=== PATIENT | female | born 1995 | race Caucasian/White ===

== ENCOUNTER 2016-12-27 18:49 | Inpatient (IN) | payer OTHER ==
[2016-12-27] MEDS ORDERED: RINGER'S SOLUTION,LACTATED 1,000 ML IV PRN (19:17)
[2016-12-27] MEDS ORDERED: RINGER'S SOLUTION,LACTATED 1,000 ML IV ONE (19:17)
[2016-12-27] MEDS ORDERED: OXYTOCIN/DEXTROSE 5%-WATER 30 UNITS/500 ML BAG IV ONE (19:17)
[2016-12-27] MEDS ORDERED: BUPIVACAINE HCL/0.9 % NACL/PF 250 ML EP PRN (19:17)
[2016-12-27] MEDS ORDERED: ONDANSETRON HCL/PF 2 MG/ML VIAL IV PRN ×2 (19:17)
[2016-12-27] MEDS ORDERED: NALOXONE HCL 1 MG/1 ML SYRG IV PRN (19:17)
[2016-12-27] MEDS ORDERED: LIDOCAINE HCL 50 ML VIAL PERI PRN (19:17)
--- OUTSIDE RECORDS SUMMARY | 2016-12-27 19:18 | XMS REPORT | Summary of Care ---
:1995 Author Organization [facility] Care Team Providers Name Role Phone Physician, Primary Care Primary Care Physician Unavailable Encounter Date(s): 09/30/16 - 09/30/[address] [id number] Discharge Disposition: Discharged to Home or Self Care Attending Physician: Ros Sierra CNM Admitting Physician: Ros Sierra CNM Vital Signs No data available for this section Problem List Condition Effective Dates Status Health Status Informant Maternal tobacco use(Confirmed) Active (Confirmed) 03/23/16 Active Allergies, Adverse Reactions, Alerts No Known Medication Allergies Medications azithromycin 500 mg oral tablet 2 tab(s), Oral, ONETIME, # 2 tab(s), 1 Refill(s), Start Date: 05/28/16 7:44:00 ZONE SUPERVISOR FIREARMS, Pharmacy: [facility] [id number] Start Date: 05/28/16 Stop Date: 06/24/16 Status: CompletedDebrox 6.5% otic solution 5 drop(s), Otic, BID, X 2 days, # 15 mL, 0 Refill(s), Start Date: 08/22/15 19:55 :00 CDT Start Date: 08/22/15 Stop Date: 08/24/15 Status: CompletedFlintstones Multivitamins 2 tab(s), Chewed, Daily, 0 Refill(s), Start Date: 05/27/16 13:22:00 ZONE SUPERVISOR FIREARMS Start Date: 05/27/16 Status: OrderedFlonase 50 mcg/inh nasal spray 2 spray(s), Nasal, BID, X 14 days, # 16 gm, 0 Refill(s), Start Date: 08/22/15 19 :54:00 CDT Start Date: 08/22/15 Stop Date: 09/05/15 Status: CompletedmetroNIDAZOLE 500 mg oral tablet 1 tab(s), Oral, q12hr interval, # 14 tab(s), 0 Refill(s), Start Date: 09/30/16 9 :46:00 CDT, Pharmacy: [facility] Start Date: 09/30/16 Stop Date: 10/07/16 Status: Orderedpromethazine 25 mg oral tablet 1 tab(s), Oral, q6hr, PRN nausea, # 30 tab(s), 0 Refill(s), Start Date: 10:02:00 ZONE SUPERVISOR FIREARMS, Pharmacy: [facility] [id number] Start Date: 05/20/16 Stop Date: 06/24/16 Status: Completedpromethazine 25 mg oral tablet 1 tab(s), Oral, q6hr, PRN nausea, # 30 tab(s), 0 Refill(s), Start Date: 10:01:00 ZONE SUPERVISOR FIREARMS Start Date: 05/20/16 Stop Date: 05/20/16 Status: DiscontinuedValium 2 mg oral tablet 1 tab(s), Oral, TID, PRN muscle pain, X 5 days, # 15 tab(s), 0 Refill(s), Start Date: 06/24/15 22:12:00 ZONE SUPERVISOR FIREARMS Start Date: 06/24/15 Stop Date: 06/29/15 Status: Completed Results Patient Viewable Results Most recent to oldest [Reference Range]: 1 Fibronectin [Negative] Positive1 *ABN* (09/30/16 9:38 AM) UA Color Yellow *NA* (09/30/16 9:19 AM) Urine Clarity Cloudy *NA* (09/30/16 9:19 AM) Specific [place] [1.000-1.060] 1.016 (09/30/16 9:19 AM) Urine pH [5-8] 7 (09/30/16 9:19 AM) Ketones Negative (09/30/16 9:19 AM) Bilirubin [Negative] Negative (09/30/16 9:19 AM) Urine Protein [Negative] Negative (09/30/16 9:19 AM) Glucose [Negative] Negative (09/30/16 9:19 AM) Urine HGB [Negative] Negative (09/30/16 9:19 AM) Urobilinogen <2.0 *NA* (09/30/16 9:19 AM) Nitrite [Negative] Negative (09/30/16 9:19 AM) Leuk Esterase [Negative] Negative (09/30/16 9:19 AM) UA Ascorbic Acid [Negative] Negative (09/30/16 9:19 AM) Urine WBC [0-5] 0-5 (09/30/16 9:19 AM) Urine RBC [0-2] None Seen (09/30/16 9:19 AM) Squamous Epi [0-5] 0-5 (09/30/16 9:19 AM) Mucus 1+ (09/30/16 9:19 AM) UA Amorphous Sediment 3+ *ABN* (09/30/16 9:19 AM) 1Result Comment: Verified Results called to and read back by marely at 2016 10:45:22 AM CDT by tp Immunizations Vaccine Date Refusal Reason influenza virus vaccine, inactivated 05/27/16 Procedures No data available for this section Social History No data available for this section Assessment and Plan No data available for this section
--- OUTSIDE RECORDS SUMMARY | 2016-12-27 19:18 | XMS REPORT | Summary of Care ---
:1995 Author Organization [facility] Address [address] [place] [address] Care Team Providers Name Role Phone Physician, Primary Care Primary Care Physician Unavailable Encounter Date(s): 06/24/16 - 06/24/16 [facility], [address] [place], [place] [address] Discharge Diagnosis: Maternal tobacco use in first trimester Discharge Diagnosis: Discharge Diagnosis: related nausea, antepartum Discharge Disposition: 01 Discharged to Home or Self Care Attending Physician: Ros Sierra CNM Referring Physician: Ros Sierra CNM Vital Signs Most recent to oldest [Reference Range]: 1 Peripheral Pulse Rate [60-100 bpm] 66 bpm (06/24/16 2:18 PM) Blood Pressure [90-130/60-90 mmHg] 107/66mmHg (06/24/16 2:18 PM) Weight Dosing 69.10 kg1 (06/24/16 2:19 PM) Weight Measured 69.1 kg (06/24/16 2:18 PM) 1Result Comment: This result was because the dosing weight was either not entered or it is>30 days old. This result is based off: Weight Measured June 24, 2016 14:18:00 CERTIFIED RESPIRATORY THERAPIST by Yolanda Corona MA Problem List Condition Effective Dates Status Health Status Informant Adolescent (Confirmed) Active Maternal tobacco use(Confirmed) Active (Confirmed) 03/23/16 Active Allergies, Adverse Reactions, Alerts No Known Medication Allergies Medications azithromycin 500 mg oral tablet 2 tab(s), Oral, ONETIME, # 2 tab(s), 1 Refill(s), Start Date: 05/28/16 7:44:00 CERTIFIED RESPIRATORY THERAPIST, Pharmacy: [facility] [id number] Start Date: 05/28/16 Stop Date: 06/24/16 Status: CompletedDebrox 6.5% otic solution 5 drop(s), Otic, BID, X 2 days, # 15 mL, 0 Refill(s), Start Date: 08/22/15 19:55 :00 CDT Start Date: 08/22/15 Stop Date: 08/24/15 Status: CompletedFlintstones Multivitamins tab(s), Chewed, Daily, 0 Refill(s), Start Date: 05/27/16 13:22:00 CERTIFIED RESPIRATORY THERAPIST Start Date: 05/27/16 Status: OrderedFlonase 50 mcg/inh nasal spray 2 spray(s), Nasal, BID, X 14 days, # 16 gm, 0 Refill(s), Start Date: 08/22/15 19 :54:00 CDT Start Date: 08/22/15 Stop Date: 09/05/15 Status: Completedpromethazine 25 mg oral tablet 1 tab(s), Oral, q6hr, PRN nausea, # 30 tab(s), 0 Refill(s), Start Date: 10:02:00 CERTIFIED RESPIRATORY THERAPIST, Pharmacy: [facility] [id number] Start Date: 05/20/16 Stop Date: 06/24/16 Status: Completedpromethazine 25 mg oral tablet 1 tab(s), Oral, q6hr, PRN nausea, # 30 tab(s), 0 Refill(s), Start Date: 10:01:00 CERTIFIED RESPIRATORY THERAPIST Start Date: 05/20/16 Stop Date: 05/20/16 Status: DiscontinuedValium 2 mg oral tablet 1 tab(s), Oral, TID, PRN muscle pain, X 5 days, # 15 tab(s), 0 Refill(s), Start Date: 06/24/15 22:12:00 CERTIFIED RESPIRATORY THERAPIST Start Date: 06/24/15 Stop Date: 06/29/15 Status: Completed Results No data available for this section Immunizations Given and Recorded Vaccine Date Status Refusal Reason influenza virus vaccine, inactivated 05/27/16 Given Procedures No data available for this section Social History No data available for this section Assessment and Plan No data available for this section
--- OUTSIDE RECORDS SUMMARY | 2016-12-27 19:18 | XMS REPORT | Summary of Care ---
:1995 Author Organization [facility] Address [address] [place] [address] Care Team Providers Name Role Phone Physician, Primary Care Primary Care Physician Unavailable Encounter Date(s): 12/02/16 - 12/02/16 [facility], [address] [place], [place] [address] Discharge Disposition: 01 Discharged to Home or Self Care Attending Physician: Ros Sierra CNM Referring Physician: Ros Sierra CNM Vital Signs Most recent to oldest [Reference Range]: 1 Peripheral Pulse Rate [60-100 bpm] 85 bpm (12/02/16 9:54 AM) Blood Pressure [90-130/60-90 mmHg] 125/81mmHg (12/02/16 9:54 AM) Most recent to oldest [Reference Range]: 1 Weight Dosing 86.90 kg1 (12/02/16 9:55 AM) Weight Measured 86.9 kg (12/02/16 9:54 AM) 1Result Comment: This result was because the dosing weight was either not entered or it is>30 days old. This result is based off: Weight Measured December 02, 2016 09:54:00 CDT by Yolanda Corona MA Problem List Condition Effective Dates Status Health Status Informant Maternal tobacco use(Confirmed) Active (Confirmed) 03/23/16 Active Allergies, Adverse Reactions, Alerts No Known Medication Allergies Medications azithromycin 500 mg oral tablet 2 tab(s), Oral, ONETIME, # 2 tab(s), 1 Refill(s), Start Date: 05/28/16 7:44:00 ROADING ENGINEER, Pharmacy: [facility] [id number] Start Date: 05/28/16 Stop Date: 06/24/16 Status: CompletedDebrox 6.5% otic solution 5 drop(s), Otic, BID, X 2 days, # 15 mL, 0 Refill(s), Start Date: 08/22/15 19:55 :00 CDT Start Date: 08/22/15 Stop Date: 08/24/15 Status: CompletedFlintstones Multivitamins 2 tab(s), Chewed, Daily, 0 Refill(s), Start Date: 05/27/16 13:22:00 ROADING ENGINEER Start Date: 05/27/16 Status: OrderedFlonase 50 mcg/inh nasal spray 2 spray(s), Nasal, BID, X 14 days, # 16 gm, 0 Refill(s), Start Date: 08/22/15 19 :54:00 CDT Start Date: 08/22/15 Stop Date: 09/05/15 Status: CompletedmetroNIDAZOLE 500 mg oral tablet 1 tab(s), Oral, q12hr interval, # 14 tab(s), 0 Refill(s), Start Date: 09/30/16 9 :46:00 CDT, Pharmacy: [facility] Start Date: 09/30/16 Stop Date: 10/07/16 Status: Completedpromethazine 25 mg oral tablet 1 tab(s), Oral, q6hr, PRN nausea, # 30 tab(s), 0 Refill(s), Start Date: 10:02:00 ROADING ENGINEER, Pharmacy: [facility] [id number] Start Date: 05/20/16 Stop Date: 06/24/16 Status: Completedpromethazine 25 mg oral tablet 1 tab(s), Oral, q6hr, PRN nausea, # 30 tab(s), 0 Refill(s), Start Date: 10:01:00 ROADING ENGINEER Start Date: 05/20/16 Stop Date: 05/20/16 Status: DiscontinuedValium 2 mg oral tablet 1 tab(s), Oral, TID, PRN muscle pain, X 5 days, # 15 tab(s), 0 Refill(s), Start Date: 06/24/15 22:12:00 ROADING ENGINEER Start Date: 06/24/15 Stop Date: 06/29/15 Status: Completed Results No data available for this section Immunizations Vaccine Date Refusal Reason tetanus/diphth/pertuss (Tdap) adult/adol 10/07/16 influenza virus vaccine, inactivated 05/27/16 Procedures No data available for this section Social History No data available for this section Assessment and Plan No data available for this section
--- OUTSIDE RECORDS SUMMARY | 2016-12-27 19:18 | XMS REPORT | Summary of Care ---
:1995 Author Organization [facility] Address [address] [place] [address] Care Team Providers Name Role Phone Physician, Primary Care Primary Care Physician Unavailable Encounter [facility] [id number] Date(s): 10/29/16 - 10/29/16 [facility], [address] [place] [address] [facility] Discharge Disposition: 01 Discharged to Home or Self Care Attending Physician: Ros Sierra CNM Referring Physician: Ros Sierra CNM Vital Signs Most recent to oldest [Reference Range]: 1 Peripheral Pulse Rate [60-100 bpm] 86 bpm (10/29/16 2:07 PM) Blood Pressure [90-130/60-90 mmHg] 110/64mmHg (10/29/16 2:07 PM) Most recent to oldest [Reference Range]: 1 Weight Dosing 81.60 kg1 (10/29/16 2:09 PM) Weight Measured 81.6 kg (10/29/16 2:07 PM) 1Result Comment: This result was because the dosing weight was either not entered or it is>30 days old. This result is based off: Weight Measured October 29, 2016 14:07:00 CDT by Yolanda Corona MA Problem List Condition Effective Dates Status Health Status Informant Maternal tobacco use(Confirmed) Active (Confirmed) 03/23/16 Active Allergies, Adverse Reactions, Alerts No Known Medication Allergies Medications azithromycin 500 mg oral tablet 2 tab(s), Oral, ONETIME, # 2 tab(s), 1 Refill(s), Start Date: 05/28/16 7:44:00 HEAVY DUTY CUSTODIAN, Pharmacy: [facility] [id number] Start Date: 05/28/16 Stop Date: 06/24/16 Status: CompletedDebrox 6.5% otic solution 5 drop(s), Otic, BID, X 2 days, # 15 mL, 0 Refill(s), Start Date: 08/22/15 19:55 :00 CDT Start Date: 08/22/15 Stop Date: 08/24/15 Status: CompletedFlintstones Multivitamins 2 tab(s), Chewed, Daily, 0 Refill(s), Start Date: 05/27/16 13:22:00 HEAVY DUTY CUSTODIAN Start Date: 05/27/16 Status: OrderedFlonase 50 mcg/inh nasal spray 2 spray(s), Nasal, BID, X 14 days, # 16 gm, 0 Refill(s), Start Date: 08/22/15 19 :54:00 CDT Start Date: 08/22/15 Stop Date: 09/05/15 Status: CompletedmetroNIDAZOLE 500 mg oral tablet 1 tab(s), Oral, q12hr interval, # 14 tab(s), 0 Refill(s), Start Date: 09/30/16 9 :46:00 CDT, Pharmacy: [facility] Start Date: 09/30/16 Stop Date: 10/07/16 Status: Completedpromethazine 25 mg oral tablet 1 tab(s), Oral, q6hr, PRN nausea, # 30 tab(s), 0 Refill(s), Start Date: 10:02:00 HEAVY DUTY CUSTODIAN, Pharmacy: [facility] [id number] Start Date: 05/20/16 Stop Date: 06/24/16 Status: Completedpromethazine 25 mg oral tablet 1 tab(s), Oral, q6hr, PRN nausea, # 30 tab(s), 0 Refill(s), Start Date: 10:01:00 HEAVY DUTY CUSTODIAN Start Date: 05/20/16 Stop Date: 05/20/16 Status: DiscontinuedValium 2 mg oral tablet 1 tab(s), Oral, TID, PRN muscle pain, X 5 days, # 15 tab(s), 0 Refill(s), Start Date: 06/24/15 22:12:00 HEAVY DUTY CUSTODIAN Start Date: 06/24/15 Stop Date: 06/29/15 Status: Completed Results No data available for this section Immunizations Vaccine Date Refusal Reason tetanus/diphth/pertuss (Tdap) adult/adol 10/07/16 influenza virus vaccine, inactivated 05/27/16 Procedures No data available for this section Social History No data available for this section Assessment and Plan No data available for this section
--- OUTSIDE RECORDS SUMMARY | 2016-12-27 19:20 | XMS REPORT | Summary of Care ---
:1995 Author Organization [facility] Care Team Providers Name Role Phone Physician, Primary Care Primary Care Physician Unavailable Encounter Date(s): 12/02/16 - 12/02/[address] [id number] Discharge Disposition: Discharged to Home or Self [...] tab(s), 1 Refill(s), Start Date: 05/28/16 7:44:00 SOFTBALL CORE MOLDER, Pharmacy: [facility] [id number] Start Date: 05/28/16 Stop Date: 06/24/16 Status: CompletedDebrox 6.5% otic solution 5 drop(s), Otic, BID, X 2 days, # 15 mL, 0 Refill(s), Start Date: 08/22/15 19:55 :00 CDT Start Date: 08/22/15 Stop Date: 08/24/15 Status: CompletedFlintstones Multivitamins 2 tab(s), Chewed, Daily, 0 Refill(s), Start Date: 05/27/16 13:22:00 SOFTBALL CORE MOLDER Start Date: 05/27/16 Status: OrderedFlonase 50 mcg/inh nasal spray 2 spray(s), Nasal, BID, X 14 days, # 16 gm, 0 Refill(s), Start Date: 08/22/15 19 :54:00 CDT Start Date: 08/22/15 Stop Date: 09/05/15 Status: CompletedmetroNIDAZOLE 500 mg oral tablet 1 tab(s), Oral, q12hr interval, # 14 tab(s), 0 Refill(s), Start Date: 09/30/16 9 :46:00 CDT, Pharmacy: [facility] Start Date: 09/30/16 Stop Date: 10/07/16 Status: Completedpromethazine 25 mg oral tablet 1 tab(s), Oral, q6hr, PRN nausea, # 30 tab(s), 0 Refill(s), Start Date: 10:02:00 SOFTBALL CORE MOLDER, Pharmacy: [facility] [id number] Start Date: 05/20/16 Stop Date: 06/24/16 Status: Completedpromethazine 25 mg oral tablet 1 tab(s), Oral, q6hr, PRN nausea, # 30 tab(s), 0 Refill(s), Start Date: 10:01:00 SOFTBALL CORE MOLDER Start Date: 05/20/16 Stop Date: 05/20/16 Status: DiscontinuedValium 2 mg oral tablet 1 tab(s), Oral, TID, PRN muscle pain, X 5 days, # 15 tab(s), 0 Refill(s), Start Date: 06/24/15 22:12:00 SOFTBALL CORE MOLDER Start Date: 06/24/15 Stop Date: 06/29/15 Status: Completed Results Patient Viewable Results Most recent to oldest [Reference Range]: 1 WBC [4.8-10.8 thou/mm3] 10.4 thou/mm3 (12/02/16 10:15 AM) RBC [4.20-5.40 Mil/mm3] 3.91 Mil/mm3 *LOW* (12/02/16 10:15 AM) Hgb [12.0-16.0 g/dL] 11.7 g/dL *LOW* (12/02/16 10:15 AM) Hct [37.0-47.0 %] 34.7 % *LOW* (12/02/16 10:15 AM) MCV [80.0-94.0 fL] 88.7 fL (12/02/16 10:15 AM) MCH [25.0-38.0 pg/cell] 29.9 pg/cell (12/02/16 10:15 AM) MCHC [31.0-37.0 g/dL] 33.7 g/dL (12/02/16 10:15 AM) RDW [1.0-48.0 fL] 40.5 fL (12/02/16 10:15 AM) Platelet [130-400 thou/mm3] 303 thou/mm3 (12/02/16 10:15 AM) Neutrophils % Auto [50.0-75.0 %] 63.3 % (12/02/16 10:15 AM) Immature Granulocyte Auto [0.1-2.0 %] 0.6 % (12/02/16 10:15 AM) Lymphocytes % Auto [15.0-41.0 %] 26.1 % (12/02/16 10:15 AM) Monocytes % Auto [2.0-10.0 %] 8.5 % (12/02/16 10:15 AM) Eosinophils % Auto [0.0-6.0 %] 1.4 % (12/02/16 10:15 AM) Basophil % Auto [0.0-1.0 %] 0.1 % (12/02/16 10:15 AM) Neutrophils Absolute [1.5-5.9 thou/mm3] 6.6 thou/mm3 *HI* (12/02/16 10:15 AM) Immature Gran Absolute [0.01-0.03 thou/mm3] 0.06 thou/mm3 *HI* (12/02/16 10:15 AM) Lymphocytes Absolute [1.5-4.0 thou/mm3] 2.7 thou/mm3 (12/02/16 10:15 AM) Monocytes Absolute [0.0-0.9 thou/mm3] 0.9 thou/mm3 (12/02/16 10:15 AM) Eosinophil Absolute [0.0-0.7 thou/mm3] 0.1 thou/mm3 (12/02/16 10:15 AM) Basophil Absolute [0.0-0.2 thou/mm3] 0.0 thou/mm3 (12/02/16 10:15 AM) Hep B Surf Ag [Non-Reactive] Non-Reactive (12/02/16 10:15 AM) HIV Ag/Ab Combo [Non-Reactive] Non-Reactive (12/02/16 10:15 AM) Rubella IgG [Immune] Testing was performed by the [employer] Rubella IgG assay. ([facility]) (12/02/16 10:15 AM) ABO/Rh A POS *Unknown* (12/02/16 10:15 AM) Antibody Screen Negative ABSC (12/02/16 10:15 AM) Immunizations Vaccine Date Refusal Reason tetanus/diphth/pertuss (Tdap) adult/adol 10/07/16 influenza virus vaccine, inactivated 05/27/16 Procedures No data available for this section Social History No data available for this section Assessment and Plan No data available for this section
--- OUTSIDE RECORDS SUMMARY | 2016-12-27 19:20 | XMS REPORT | Summary of Care ---
:1995 Author Organization [facility] Address [address] [place] [address] Care Team Providers Name Role Phone Physician, Primary Care Primary Care Physician Unavailable Encounter Date(s): 07/22/16 - 07/22/16 [facility], [address] [place] [address] [place] Discharge Disposition: 01 Discharged to Home or Self Care Attending Physician: Ros Sierra CNM Referring Physician: Ros Sierra CNM Vital Signs No data available for this section Problem List Condition Effective Dates Status Health Status Informant Adolescent (Confirmed) Active Maternal tobacco use(Confirmed) Active (Confirmed) 03/23/16 Active Allergies, Adverse Reactions, Alerts No Known Medication Allergies Medications azithromycin 500 mg oral tablet 2 tab(s), Oral, ONETIME, # 2 tab(s), 1 Refill(s), Start Date: 05/28/16 7:44:00 GREEN INSPECTOR, Pharmacy: [facility] [id number] Start Date: 05/28/16 Stop Date: 06/24/16 Status: CompletedDebrox 6.5% otic solution 5 drop(s), Otic, BID, X 2 days, # 15 mL, 0 Refill(s), Start Date: 08/22/15 19:55 :00 CDT Start Date: 08/22/15 Stop Date: 08/24/15 Status: CompletedFlintstones Multivitamins tab(s), Chewed, Daily, 0 Refill(s), Start Date: 05/27/16 13:22:00 GREEN INSPECTOR Start Date: 05/27/16 Status: OrderedFlonase 50 mcg/inh nasal spray 2 spray(s), Nasal, BID, X 14 days, # 16 gm, 0 Refill(s), Start Date: 08/22/15 19 :54:00 CDT Start Date: 08/22/15 Stop Date: 09/05/15 Status: Completedpromethazine 25 mg oral tablet 1 tab(s), Oral, q6hr, PRN nausea, # 30 tab(s), 0 Refill(s), Start Date: 10:02:00 GREEN INSPECTOR, Pharmacy: [facility] [id number] Start Date: 05/20/16 Stop Date: 06/24/16 Status: Completedpromethazine 25 mg oral tablet 1 tab(s), Oral, q6hr, PRN nausea, # 30 tab(s), 0 Refill(s), Start Date: 10:01:00 GREEN INSPECTOR Start Date: 05/20/16 Stop Date: 05/20/16 Status: DiscontinuedValium 2 mg oral tablet 1 tab(s), Oral, TID, PRN muscle pain, X 5 days, # 15 tab(s), 0 Refill(s), Start Date: 06/24/15 22:12:00 GREEN INSPECTOR Start Date: 06/24/15 Stop Date: 06/29/15 Status: Completed Results No data available for this section Immunizations Vaccine Date Refusal Reason influenza virus vaccine, inactivated 05/27/16 Procedures No data available for this section Social History No data available for this section Assessment and Plan No data available for this section
--- OUTSIDE RECORDS SUMMARY | 2016-12-27 19:20 | XMS REPORT | Summary of Care ---
:1995 Author Organization [facility] Care Team Providers Name Role Phone Physician, Primary Care Primary Care Physician Unavailable Encounter Date(s): 11/12/16 - 11/12/[address] [address] Discharge Disposition: Discharged to [...] tab(s), 1 Refill(s), Start Date: 05/28/16 7:44:00 NONPROFIT FUNDRAISER, Pharmacy: [facility] [id number] Start Date: 05/28/16 Stop Date: 06/24/16 Status: CompletedDebrox 6.5% otic solution 5 drop(s), Otic, BID, X 2 days, # 15 mL, 0 Refill(s), Start Date: 08/22/15 19:55 :00 CDT Start Date: 08/22/15 Stop Date: 08/24/15 Status: CompletedFlintstones Multivitamins 2 tab(s), Chewed, Daily, 0 Refill(s), Start Date: 05/27/16 13:22:00 NONPROFIT FUNDRAISER Start Date: 05/27/16 Status: OrderedFlonase 50 mcg/inh nasal spray 2 spray(s), Nasal, BID, X 14 days, # 16 gm, 0 Refill(s), Start Date: 08/22/15 19 :54:00 CDT Start Date: 08/22/15 Stop Date: 09/05/15 Status: CompletedmetroNIDAZOLE 500 mg oral tablet 1 tab(s), Oral, q12hr interval, # 14 tab(s), 0 Refill(s), Start Date: 09/30/16 9 :46:00 CDT, Pharmacy: [facility] Start Date: 09/30/16 Stop Date: 10/07/16 Status: Completedpromethazine 25 mg oral tablet 1 tab(s), Oral, q6hr, PRN nausea, # 30 tab(s), 0 Refill(s), Start Date: 10:02:00 NONPROFIT FUNDRAISER, Pharmacy: [facility] [id number] Start Date: 05/20/16 Stop Date: 06/24/16 Status: Completedpromethazine 25 mg oral tablet 1 tab(s), Oral, q6hr, PRN nausea, # 30 tab(s), 0 Refill(s), Start Date: 10:01:00 NONPROFIT FUNDRAISER Start Date: 05/20/16 Stop Date: 05/20/16 Status: DiscontinuedValium 2 mg oral tablet 1 tab(s), Oral, TID, PRN muscle pain, X 5 days, # 15 tab(s), 0 Refill(s), Start Date: 06/24/15 22:12:00 NONPROFIT FUNDRAISER Start Date: 06/24/15 Stop Date: 06/29/15 Status: Completed Results Patient Viewable Results Most recent to oldest [Reference Range]: 1 Total Protein, Urine [1-14 mg/dL] 8 mg/dL (11/12/16 2:00 PM) Creatinine, Urine 86.6 mg/dL *NA* (11/12/16 2:00 PM) Ur TP/CRE Ratio 92 mg/g *NA* (11/12/16 2:00 PM) Chlamydia [Not Detected] Not Detected (11/12/16 2:00 PM) Gonorrhoeae [Not Detected] Not Detected (11/12/16 2:00 PM) Immunizations Vaccine Date Refusal Reason tetanus/diphth/pertuss (Tdap) adult/adol 10/07/16 influenza virus vaccine, inactivated 05/27/16 Procedures No data available for this section Social History No data available for this section Assessment and Plan No data available for this section
--- OUTSIDE RECORDS SUMMARY | 2016-12-27 19:21 | XMS REPORT | Summary of Care ---
:1995 Author Organization [facility] Address [address] [place] [address] Care Team Providers Name Role Phone Physician, Primary Care Primary Care Physician Unavailable Encounter Date(s): 11/12/16 - 11/12/16 [facility], [address] [place], [place] [address] Discharge Disposition: 01 Discharged to Home or Self Care Attending Physician: Ros Sierra CNM Referring Physician: Ros Sierra CNM Vital Signs Most recent to oldest [Reference Range]: 1 Peripheral Pulse Rate [60-100 bpm] 104 bpm *HI* (11/12/16 1:53 PM) Blood Pressure [90-130/60-90 mmHg] 135/84mmHg *HI* (11/12/16 1:53 PM) Most recent to oldest [Reference Range]: 1 Weight Dosing 83.20 kg1 (11/12/16 1:58 PM) Weight Measured 83.2 kg (11/12/16 1:53 PM) 1Result Comment: This result was because the dosing weight was either not entered or it is>30 days old. This result is based off: Weight Measured November 12, 2016 13:53:00 CDT by Yolanda Corona MA Problem List Condition Effective Dates Status Health Status Informant Maternal tobacco use(Confirmed) Active (Confirmed) 03/23/16 Active Allergies, Adverse Reactions, Alerts No Known Medication Allergies Medications azithromycin 500 mg oral tablet 2 tab(s), Oral, ONETIME, # 2 tab(s), 1 Refill(s), Start Date: 05/28/16 7:44:00 MANAGER BASKETBALL, Pharmacy: [facility] [id number] Start Date: 05/28/16 Stop Date: 06/24/16 Status: CompletedDebrox 6.5% otic solution 5 drop(s), Otic, BID, X 2 days, # 15 mL, 0 Refill(s), Start Date: 08/22/15 19:55 :00 CDT Start Date: 08/22/15 Stop Date: 08/24/15 Status: CompletedFlintstones Multivitamins 2 tab(s), Chewed, Daily, 0 Refill(s), Start Date: 05/27/16 13:22:00 MANAGER BASKETBALL Start Date: 05/27/16 Status: OrderedFlonase 50 mcg/inh nasal spray 2 spray(s), Nasal, BID, X 14 days, # 16 gm, 0 Refill(s), Start Date: 08/22/15 19 :54:00 CDT Start Date: 08/22/15 Stop Date: 09/05/15 Status: CompletedmetroNIDAZOLE 500 mg oral tablet 1 tab(s), Oral, q12hr interval, # 14 tab(s), 0 Refill(s), Start Date: 09/30/16 9 :46:00 CDT, Pharmacy: [facility] Start Date: 09/30/16 Stop Date: 10/07/16 Status: Completedpromethazine 25 mg oral tablet 1 tab(s), Oral, q6hr, PRN nausea, # 30 tab(s), 0 Refill(s), Start Date: 10:02:00 MANAGER BASKETBALL, Pharmacy: [facility] [id number] Start Date: 05/20/16 Stop Date: 06/24/16 Status: Completedpromethazine 25 mg oral tablet 1 tab(s), Oral, q6hr, PRN nausea, # 30 tab(s), 0 Refill(s), Start Date: 10:01:00 MANAGER BASKETBALL Start Date: 05/20/16 Stop Date: 05/20/16 Status: DiscontinuedValium 2 mg oral tablet 1 tab(s), Oral, TID, PRN muscle pain, X 5 days, # 15 tab(s), 0 Refill(s), Start Date: 06/24/15 22:12:00 MANAGER BASKETBALL Start Date: 06/24/15 Stop Date: 06/29/15 Status: Completed Results No data available for this section Immunizations Vaccine Date Refusal Reason tetanus/diphth/pertuss (Tdap) adult/adol 10/07/16 influenza virus vaccine, inactivated 05/27/16 Procedures No data available for this section Social History No data available for this section Assessment and Plan No data available for this section
--- OUTSIDE RECORDS SUMMARY | 2016-12-27 19:21 | XMS REPORT | Summary of Care ---
:1995 Author Organization [facility] Address [address] [place] [address] Care Team Providers Name Role Phone Physician, Primary Care Primary Care Physician Unavailable Encounter Date(s): 08/12/16 - 08/12/16 [facility], [address] [place], [place] [address] Discharge Diagnosis: Encounter for supervision of normal first , first trimester Discharge Disposition: 01 Discharged to Home or Self Care Attending Physician: Ros Sierra CNM Referring Physician: Ros Sierra CNM Vital Signs Most recent to oldest [Reference Range]: 1 Peripheral Pulse Rate [60-100 bpm] 90 bpm (08/12/16 1:12 PM) Blood Pressure [90-130/60-90 mmHg] 131/70mmHg *HI* (08/12/16 1:12 PM) Most recent to oldest [Reference Range]: 1 Weight Dosing 73.60 kg1 (08/12/16 1:12 PM) Weight Measured 73.6 kg (08/12/16 1:12 PM) 1Result Comment: This result was because the dosing weight was either not entered or it is>30 days old. This result is based off: Weight Measured August 12, 2016 13:12:00 CDT by Yolanda Corona MA Problem List Condition Effective Dates Status Health Status Informant Adolescent (Confirmed) Active Maternal tobacco use(Confirmed) Active (Confirmed) 03/23/16 Active Allergies, Adverse Reactions, Alerts No Known Medication Allergies Medications azithromycin 500 mg oral tablet 2 tab(s), Oral, ONETIME, # 2 tab(s), 1 Refill(s), Start Date: 05/28/16 7:44:00 FOOD SAMPLER, Pharmacy: [facility] [id number] Start Date: 05/28/16 Stop Date: 06/24/16 Status: CompletedDebrox 6.5% otic solution 5 drop(s), Otic, BID, X 2 days, # 15 mL, 0 Refill(s), Start Date: 08/22/15 19:55 :00 CDT Start Date: 08/22/15 Stop Date: 08/24/15 Status: CompletedFlintstones Multivitamins tab(s), Chewed, Daily, 0 Refill(s), Start Date: 05/27/16 13:22:00 FOOD SAMPLER Start Date: 05/27/16 Status: OrderedFlonase 50 mcg/inh nasal spray 2 spray(s), Nasal, BID, X 14 days, # 16 gm, 0 Refill(s), Start Date: 08/22/15 19 :54:00 CDT Start Date: 08/22/15 Stop Date: 09/05/15 Status: Completedpromethazine 25 mg oral tablet 1 tab(s), Oral, q6hr, PRN nausea, # 30 tab(s), 0 Refill(s), Start Date: 10:02:00 FOOD SAMPLER, Pharmacy: [facility] [id number] Start Date: 05/20/16 Stop Date: 06/24/16 Status: Completedpromethazine 25 mg oral tablet 1 tab(s), Oral, q6hr, PRN nausea, # 30 tab(s), 0 Refill(s), Start Date: 10:01:00 FOOD SAMPLER Start Date: 05/20/16 Stop Date: 05/20/16 Status: DiscontinuedValium 2 mg oral tablet 1 tab(s), Oral, TID, PRN muscle pain, X 5 days, # 15 tab(s), 0 Refill(s), Start Date: 06/24/15 22:12:00 FOOD SAMPLER Start Date: 06/24/15 Stop Date: 06/29/15 Status: Completed Results No data available for this section Immunizations Vaccine Date Refusal Reason influenza virus vaccine, inactivated 05/27/16 Procedures No data available for this section Social History No data available for this section Assessment and Plan No data available for this section
--- OUTSIDE RECORDS SUMMARY | 2016-12-27 19:21 | XMS REPORT | Summary of Care ---
:1995 Author Organization [facility] Address [address] [place] [address] Care Team Providers Name Role Phone Physician, Primary Care Primary Care Physician Unavailable Encounter Date(s): 09/09/16 - 09/09/16 [facility], [address] [place], [place] [address] Discharge Disposition: 01 Discharged to Home or Self Care Attending Physician: Ros Sierra CNM Referring Physician: Ros Sierra CNM Vital Signs Most recent to oldest [Reference Range]: 1 Peripheral Pulse Rate [60-100 bpm] 80 bpm (09/09/16 2:27 PM) Blood Pressure [90-130/60-90 mmHg] 112/62mmHg (09/09/16 2:27 PM) Most recent to oldest [Reference Range]: 1 Weight Dosing 76.80 kg1 (09/09/16 2:29 PM) Weight Measured 76.8 kg (09/09/16 2:27 PM) 1Result Comment: This result was because the dosing weight was either not entered or it is>30 days old. This result is based off: Weight Measured September 09, 2016 14:27:00 CDT by Yolanda Corona MA Problem List Condition Effective Dates Status Health Status Informant Maternal tobacco use(Confirmed) Active (Confirmed) 03/23/16 Active Allergies, Adverse Reactions, Alerts No Known Medication Allergies Medications azithromycin 500 mg oral tablet 2 tab(s), Oral, ONETIME, # 2 tab(s), 1 Refill(s), Start Date: 05/28/16 7:44:00 VAULT MECHANIC, Pharmacy: [facility] [id number] Start Date: 05/28/16 Stop Date: 06/24/16 Status: CompletedDebrox 6.5% otic solution 5 drop(s), Otic, BID, X 2 days, # 15 mL, 0 Refill(s), Start Date: 08/22/15 19:55 :00 CDT Start Date: 08/22/15 Stop Date: 08/24/15 Status: CompletedFlintstones Multivitamins 2 tab(s), Chewed, Daily, 0 Refill(s), Start Date: 05/27/16 13:22:00 VAULT MECHANIC Start Date: 05/27/16 Status: OrderedFlonase 50 mcg/inh nasal spray 2 spray(s), Nasal, BID, X 14 days, # 16 gm, 0 Refill(s), Start Date: 08/22/15 19 :54:00 CDT Start Date: 08/22/15 Stop Date: 09/05/15 Status: Completedpromethazine 25 mg oral tablet 1 tab(s), Oral, q6hr, PRN nausea, # 30 tab(s), 0 Refill(s), Start Date: 10:02:00 VAULT MECHANIC, Pharmacy: [facility] [id number] Start Date: 05/20/16 Stop Date: 06/24/16 Status: Completedpromethazine 25 mg oral tablet 1 tab(s), Oral, q6hr, PRN nausea, # 30 tab(s), 0 Refill(s), Start Date: 10:01:00 VAULT MECHANIC Start Date: 05/20/16 Stop Date: 05/20/16 Status: DiscontinuedValium 2 mg oral tablet 1 tab(s), Oral, TID, PRN muscle pain, X 5 days, # 15 tab(s), 0 Refill(s), Start Date: 06/24/15 22:12:00 VAULT MECHANIC Start Date: 06/24/15 Stop Date: 06/29/15 Status: Completed Results No data available for this section Immunizations Vaccine Date Refusal Reason influenza virus vaccine, inactivated 05/27/16 Procedures No data available for this section Social History No data available for this section Assessment and Plan No data available for this section
--- OUTSIDE RECORDS SUMMARY | 2016-12-27 19:21 | XMS REPORT | Summary of Care ---
:1995 Author Organization [facility] Address [address] [place] [address] Care Team Providers Name Role Phone Physician, Primary Care Primary Care Physician Unavailable Encounter Date(s): 09/30/16 - 09/30/16 [facility], [address] [place], [place] [address] Discharge Diagnosis: Discharge Diagnosis: Bacterial vaginosis Discharge Disposition: 01 Discharged to Home or Self Care Attending Physician: Ros Sierra CNM Referring Physician: Ros Sierra CNM Vital Signs Most recent to oldest [Reference Range]: 1 Peripheral Pulse Rate [60-100 bpm] 83 bpm (09/30/16 9:13 AM) Blood Pressure [90-130/60-90 mmHg] 116/73mmHg (09/30/16 9:13 AM) Most recent to oldest [Reference Range]: 1 Weight Dosing 76.70 kg1 (09/30/16 9:13 AM) Weight Measured 76.7 kg (09/30/16 9:13 AM) 1Result Comment: This result was because the dosing weight was either not entered or it is>30 days old. This result is based off: Weight Measured September 30, 2016 09:13:00 CDT by Yolanda Corona MA Problem List Condition Effective Dates Status Health Status Informant Maternal tobacco use(Confirmed) Active (Confirmed) 03/23/16 Active Allergies, Adverse Reactions, Alerts No Known Medication Allergies Medications azithromycin 500 mg oral tablet 2 tab(s), Oral, ONETIME, # 2 tab(s), 1 Refill(s), Start Date: 05/28/16 7:44:00 RAILROAD INSPECTOR, Pharmacy: [facility] [id number] Start Date: 05/28/16 Stop Date: 06/24/16 Status: CompletedDebrox 6.5% otic solution 5 drop(s), Otic, BID, X 2 days, # 15 mL, 0 Refill(s), Start Date: 08/22/15 19:55 :00 CDT Start Date: 08/22/15 Stop Date: 08/24/15 Status: CompletedFlintstones Multivitamins 2 tab(s), Chewed, Daily, 0 Refill(s), Start Date: 05/27/16 13:22:00 RAILROAD INSPECTOR Start Date: 05/27/16 Status: OrderedFlonase 50 mcg/inh nasal spray 2 spray(s), Nasal, BID, X 14 days, # 16 gm, 0 Refill(s), Start Date: 08/22/15 19 :54:00 CDT Start Date: 08/22/15 Stop Date: 09/05/15 Status: CompletedmetroNIDAZOLE 500 mg oral tablet 1 tab(s), Oral, q12hr interval, # 14 tab(s), 0 Refill(s), Start Date: 09/30/16 9 :46:00 CDT, Pharmacy: [facility] Start Date: 09/30/16 Stop Date: 10/07/16 Status: Orderedpromethazine 25 mg oral tablet 1 tab(s), Oral, q6hr, PRN nausea, # 30 tab(s), 0 Refill(s), Start Date: 10:02:00 RAILROAD INSPECTOR, Pharmacy: [facility] [id number] Start Date: 05/20/16 Stop Date: 06/24/16 Status: Completedpromethazine 25 mg oral tablet 1 tab(s), Oral, q6hr, PRN nausea, # 30 tab(s), 0 Refill(s), Start Date: 10:01:00 RAILROAD INSPECTOR Start Date: 05/20/16 Stop Date: 05/20/16 Status: DiscontinuedValium 2 mg oral tablet 1 tab(s), Oral, TID, PRN muscle pain, X 5 days, # 15 tab(s), 0 Refill(s), Start Date: 06/24/15 22:12:00 RAILROAD INSPECTOR Start Date: 06/24/15 Stop Date: 06/29/15 Status: Completed Results No data available for this section Immunizations Vaccine Date Refusal Reason influenza virus vaccine, inactivated 05/27/16 Procedures No data available for this section Social History No data available for this section Assessment and Plan No data available for this section
--- OUTSIDE RECORDS SUMMARY | 2016-12-27 19:21 | XMS REPORT | Summary of Care ---
:1995 Author Organization [facility] Care Team Providers Name Role Phone Physician, Primary Care Primary Care Physician Unavailable Encounter Date(s): 10/07/16 - 10/07/[address] [address] Discharge Disposition: Discharged to Home or [...] 1 Refill(s), Start Date: 05/28/16 7:44:00 MANAGER BUSINESS PLANNING, Pharmacy: [facility] [id number] Start Date: 05/28/16 Stop Date: 06/24/16 Status: CompletedDebrox 6.5% otic solution 5 drop(s), Otic, BID, X 2 days, # 15 mL, 0 Refill(s), Start Date: 08/22/15 19:55 :00 CDT Start Date: 08/22/15 Stop Date: 08/24/15 Status: CompletedFlintstones Multivitamins 2 tab(s), Chewed, Daily, 0 Refill(s), Start Date: 05/27/16 13:22:00 MANAGER BUSINESS PLANNING Start Date: 05/27/16 Status: OrderedFlonase 50 mcg/inh nasal spray 2 spray(s), Nasal, BID, X 14 days, # 16 gm, 0 Refill(s), Start Date: 08/22/15 19 :54:00 CDT Start Date: 08/22/15 Stop Date: 09/05/15 Status: CompletedmetroNIDAZOLE 500 mg oral tablet 1 tab(s), Oral, q12hr interval, # 14 tab(s), 0 Refill(s), Start Date: 09/30/16 9 :46:00 CDT, Pharmacy: [facility] Start Date: 09/30/16 Stop Date: 10/07/16 Status: Completedpromethazine 25 mg oral tablet 1 tab(s), Oral, q6hr, PRN nausea, # 30 tab(s), 0 Refill(s), Start Date: 10:02:00 MANAGER BUSINESS PLANNING, Pharmacy: [facility] [id number] Start Date: 05/20/16 Stop Date: 06/24/16 Status: Completedpromethazine 25 mg oral tablet 1 tab(s), Oral, q6hr, PRN nausea, # 30 tab(s), 0 Refill(s), Start Date: 10:01:00 MANAGER BUSINESS PLANNING Start Date: 05/20/16 Stop Date: 05/20/16 Status: DiscontinuedValium 2 mg oral tablet 1 tab(s), Oral, TID, PRN muscle pain, X 5 days, # 15 tab(s), 0 Refill(s), Start Date: 06/24/15 22:12:00 MANAGER BUSINESS PLANNING Start Date: 06/24/15 Stop Date: 06/29/15 Status: Completed Results Patient Viewable Results Most recent to oldest [Reference Range]: 1 RBC [4.20-5.40 Mil/mm3] 3.67 Mil/mm3 *LOW* (10/07/16 3:38 PM) Hgb [12.0-16.0 g/dL] 11.3 g/dL *LOW* (10/07/16 3:38 PM) Hct [37.0-47.0 %] 33.4 % *LOW* (10/07/16 3:38 PM) MCV [80.0-94.0 fL] 91.0 fL (10/07/16 3:38 PM) MCH [25.0-38.0 pg/cell] 30.8 pg/cell (10/07/16 3:38 PM) MCHC [31.0-37.0 g/dL] 33.8 g/dL (10/07/16 3:38 PM) RDW [1.0-48.0 fL] 41.5 fL (10/07/16 3:38 PM) Glucose 1hr OB [0-139 mg/dL] 83 mg/dL (10/07/16 3:38 PM) Immunizations Vaccine Date Refusal Reason tetanus/diphth/pertuss (Tdap) adult/adol 10/07/16 influenza virus vaccine, inactivated 05/27/16 Procedures No data available for this section Social History No data available for this section Assessment and Plan No data available for this section
--- OUTSIDE RECORDS SUMMARY | 2016-12-27 19:21 | XMS REPORT | Summary of Care ---
:1995 Author Organization [facility] Address [address] [place] [address] Care Team Providers Name Role Phone Physician, Primary Care Primary Care Physician Unavailable Encounter Date(s): 10/07/16 - 10/07/16 [facility], [address] [place], [place] [address] Discharge Disposition: 01 Discharged to Home or Self Care Attending Physician: Ros Sierra CNM Referring Physician: Ros Sierra CNM Vital Signs Most recent to oldest [Reference Range]: 1 Peripheral Pulse Rate [60-100 bpm] 81 bpm (10/07/16 2:49 PM) Blood Pressure [90-130/60-90 mmHg] 117/61mmHg (10/07/16 2:49 PM) Most recent to oldest [Reference Range]: 1 Weight Dosing 78.10 kg1 (10/07/16 2:51 PM) Weight Measured 78.1 kg (10/07/16 2:49 PM) 1Result Comment: This result was because the dosing weight was either not entered or it is>30 days old. This result is based off: Weight Measured October 07, 2016 14:49:00 CDT by Yolanda Corona MA Problem List Condition Effective Dates Status Health Status Informant Maternal tobacco use(Confirmed) Active (Confirmed) 03/23/16 Active Allergies, Adverse Reactions, Alerts No Known Medication Allergies Medications azithromycin 500 mg oral tablet 2 tab(s), Oral, ONETIME, # 2 tab(s), 1 Refill(s), Start Date: 05/28/16 7:44:00 PRESIDENT COMM[employer]CIAL [employer]ANK, Pharmacy: [facility] [id number] Start Date: 05/28/16 Stop Date: 06/24/16 Status: CompletedDebrox 6.5% otic solution 5 drop(s), Otic, BID, X 2 days, # 15 mL, 0 Refill(s), Start Date: 08/22/15 19:55 :00 CDT Start Date: 08/22/15 Stop Date: 08/24/15 Status: CompletedFlintstones Multivitamins 2 tab(s), Chewed, Daily, 0 Refill(s), Start Date: 05/27/16 13:22:00 [employer] Start Date: 05/27/16 Status: OrderedFlonase 50 mcg/inh nasal spray 2 spray(s), Nasal, BID, X 14 days, # 16 gm, 0 Refill(s), Start Date: 08/22/15 19 :54:00 CDT Start Date: 08/22/15 Stop Date: 09/05/15 Status: CompletedmetroNIDAZOLE 500 mg oral tablet 1 tab(s), Oral, q12hr interval, # 14 tab(s), 0 Refill(s), Start Date: 09/30/16 9 :46:00 CDT, Pharmacy: [facility] Start Date: 09/30/16 Stop Date: 10/07/16 Status: Completedpromethazine 25 mg oral tablet 1 tab(s), Oral, q6hr, PRN nausea, # 30 tab(s), 0 Refill(s), Start Date: 10:02:00 [employer], Pharmacy: [facility] [id number] Start Date: 05/20/16 Stop Date: 06/24/16 Status: Completedpromethazine 25 mg oral tablet 1 tab(s), Oral, q6hr, PRN nausea, # 30 tab(s), 0 Refill(s), Start Date: 10:01:00 [employer] Start Date: 05/20/16 Stop Date: 05/20/16 Status: DiscontinuedValium 2 mg oral tablet 1 tab(s), Oral, TID, PRN muscle pain, X 5 days, # 15 tab(s), 0 Refill(s), Start Date: 06/24/15 22:12:00 [employer] Start Date: 06/24/15 Stop Date: 06/29/15 Status: Completed Results No data available for this section Immunizations Vaccine Date Refusal Reason tetanus/diphth/pertuss (Tdap) adult/adol 10/07/16 influenza virus vaccine, inactivated 05/27/16 Procedures No data available for this section Social History No data available for this section Assessment and Plan No data available for this section
[2016-12-27] MEDS ORDERED: fentaNYL CITRATE/PF 50 MCG/ML AMPUL IT SCH (19:30)
[2016-12-27] MEDS ORDERED: BUPIVACAINE HCL/PF 30 ML VIAL EP SCH (19:30)
[2016-12-27 19:45] LABS: Hematocrit 31.1 % (37.0-47.0); Hemoglobin 10.8 gm/dL (12.5-16.0); Mean Cell Volume 85.9 fl (78-100); Mean Corpuscular Hemoglobin 29.8 pg (27-31); Mean Corpuscular Hgb Conc 34.7 g/dl (32-36); Mean Platelet Volume 11.3 fl (6.0-9.5); Neutrophil # 14.1 K/mm3 (1.3-6.0); Neutrophil % 82.7 % (42-75.0); Platelet Count 250 K/mm3 (150-450); Red Blood Count 3.62 M/mm3 (4.2-5.4); Red Cell Distribution Width 13.3 % (11.5-14.0)
--- NOTE | 2016-12-27 20:14 | OR ---
Anesthesia Pre Procedure Eval Date of Service: 12/27/16 Pre Procedure Evaluation: Last Vital Signs Temp 36.6 C 05/19/16 15:48 Pulse Resp BP 102/41 05/19/16 17:51 Pulse Ox Anesthesia Pre Procedure Evaluation Heart Rate: 100 Blood Pressure: 159/91 Temperature: 36.7 Respiratory Rate: 18 SaO2: 95 DATE: 12/27/2016 TIME: 7:45 PM INDICATIONS: Active labor, L labor pain PAST MEDICAL HISTORY: Primipara patient in active labor requesting labor analgesia EXAM: Heart regular; lungs clear ASSESSMENT OF MEDICAL STATUS: Appropriate candidate for labor analgesia PLANNED PROCEDURE: Combination spinal epidural for labor analgesia Please note that this was dictated after insertion of the posterior Home Medications: HOME MEDICATIONS NK [No Home Medication] 05/19/16 [Last Taken Unknown]
--- NOTE | 2016-12-27 20:16 | OR ---
Anesthesia Procedure Note - Anesthesia Procedure Note Date of Service: 12/27/16 Narrative: Vital Signs - Last Taken Temp 36.6 C 05/19/16 15:48 Pulse Resp BP 102/41 05/19/16 17:51 Pulse Ox 12/27/16 20:14 ANESTHESIA PROCEDURE NOTE Date of Procedure: 12/27/2016 Time of procedure: 7:45 PM. Performed by: ORESTES Reyez CRNA, MSN Erp Technical Lead: Cynthia Albarran RN. Preprocedure diagnosis: Active labor, labor pain. Post procedure diagnosis: Same. Procedure:Epidural for labor analgesia L3 4. Indications: Labor pain. Findings: See below. Details of the procedure: The patient was placed on the side of the bed in sitting positionand prepped with DuraPrep then draped in a sterile fashion. Lidocaine 1% was infiltrated to the skin and subcutaneous tissues at the level of the L3 4 interspace. An 18-gauge Touhy needle was used to approach the epidural space with loss of resistance technique. Once loss of resistance was achieved a 24-gauge Pencan needle was passed through the epidural needle and CSF was contacted. After CSF returned fentanyl 20 mcg of fentanyl was injected in the spinal needle was removed the epidural catheter was then threaded approximately 4 cm in the epidural needle was removed. The catheter was taped in place and after careful aspiration 3 mL of 1.5% lidocaine with 1-200,000 epinephrine was injected without change in maternal heart rate or sensorium. . EBL: Minimal. Fluids: N/A. Specimen: N/A. Post procedure condition: The patient tolerated the procedure well with good relief. No complications were noted. Thank you for this consultation. Alfonso Newton CRNA, ARNP, MSN
--- NOTE | 2016-12-27 20:35 | HP ---
Chief Complaint - Chief Complaint Date of Service: 12/27/16 Chief Complaint: regular contractions History of Present Illness: 21 yo, CF, G1 at 39 1/7 weeks with EDC of 12/28/16 and LMP 03/23/16, presents to the place for contractions. The contractions started about 8:30 am this morning. They are regular and every 2-3 min apart. She went to [place] [facility] and was dilated to 4 cm and sent home after monitoring for 4 hours. She continues to have regular contractions and came here for labor check. She was found dilated to 7 cm, 100 and 0 station. Denies bleeding, or leaking fluid. Her care is at [facility] and has no complications so far. Her GBS was negative. - Narrative Narrative: PMH: none PSH: none FH: no significant family history reported. Social history: smoked marijuana and cigarettes, but quit. Allergy: none - Patient's Past Medical History Patient History - Medical: ADHD, UTI'S Patient History - Cardiac/Respiratory: No pertinent hx Patient History - Cancer: No Hx of Cancer Patient History - Surgical Procedures: Ear Tubes LMP (Calendar): 12/01/15 - Social History Living Situations: alone Psych History: No pertinent hx Alcohol Use: occasionally Drug Use: marijuana - Immunizations Immunizations Up to Date: Yes Hx Pneumococcal Vaccination: No History of Influenza Vaccine: No Review Of Systems (GEN) - Review of Systems Abdominal: Present: Other - contractions Misc: All systems neg except as marked Immunizations: IMMUNIZATION HX Immunizations Up to Date Yes History of Influenza Vaccine No Hx Pneumococcal Vaccination No Allergies/Adverse Reactions: Allergies Allergy/AdvReac Type Severity Reaction Status Date / Time No Known Allergies Allergy Verified 05/19/16 15:52 Home Medications: HOME MEDICATIONS NK [No Home Medication] 05/19/16 [Last Taken Unknown] Exam - Exam Vital Signs: Vital Signs - Last Taken Temp 36.8 C 12/27/16 20:25 Pulse 96 12/27/16 20:25 Resp 16 12/27/16 20:25 BP 102/41 12/27/16 20:25 Pulse Ox 99 12/27/16 20:25 Constitutional: Present: Alert, Oriented x3, Cooperative Respiratory: Present: lungs clear, normal breath sounds, no respiratory distress Cardiovascular/Chest: Present: normal peripheral pulses, regular rate, rhythm, no murmur Abdomen: Present: soft, nontender, nondistended, other - gravid /Rectal: Present: Other - cervix: 7 cm, 100% and 0 with a bulging bag of water Extremity: Present: normal range of motion, no pedal edema, no calf tenderness Skin Exam: Present: normal color, warm/dry, no cyanosis Eye contact: Present: cooperative, good eye contact, normal speech Diagnostic Studies: Abnormal Lab Results 12/27/16 Range/Units 19:40 WBC 17.0 H (4.0-10.5) K/mm3 RBC 3.62 L (4.2-5.4) M/mm3 Hgb 10.8 L (12.5-16.0) gm/dL Hct 31.1 L (37.0-47.0) % MPV 11.3 H (6.0-9.5) fl Immature Gran % (Auto) 0.80 H (0.001-0.429) % Immature Gran # (Auto) 0.13 H (0.000-0.0310) K/mm3 Neutrophils % 82.7 H (42-75.0) % Lymphocytes % 9.0 L (20-51) % Neutrophils # 14.1 H (1.3-6.0) K/mm3 Monocytes # 1.3 H (0.0-1.0) k/mm3 Laboratory Results WBC 17.0 K/mm3 (4.0-10.5) H 12/27/16 19:40 RBC 3.62 M/mm3 (4.2-5.4) L 12/27/16 19:40 Hgb 10.8 gm/dL (12.5-16.0) L 12/27/16 19:40 Hct 31.1 % (37.0-47.0) L 12/27/16 19:40 MCV 85.9 fl (78-100) 12/27/16 19:40 MCH 29.8 pg (27-31) 12/27/16 19:40 MCHC 34.7 g/dl (32-36) 12/27/16 19:40 RDW 13.3 % (11.5-14.0) 12/27/16 19:40 Plt Count 250 K/mm3 (150-450) 12/27/16 19:40 MPV 11.3 fl (6.0-9.5) H 12/27/16 19:40 Immature Gran % (Auto) 0.80 % (0.001-0.429) H 12/27/16 19:40 Immature Gran # (Auto) 0.13 K/mm3 (0.000-0.0310) H 12/27/16 19:40 Neutrophils % 82.7 % (42-75.0) H 12/27/16 19:40 Lymphocytes % 9.0 % (20-51) L 12/27/16 19:40 Monocytes % 7.3 % (0.0-9) 12/27/16 19:40 Eosinophils % 0.1 % (0.0-3.0) 12/27/16 19:40 Basophils % 0.1 % (0.0-1.0) 12/27/16 19:40 Nucleated RBC % 0.0 k/mm3 (0-1) 12/27/16 19:40 Neutrophils # 14.1 K/mm3 (1.3-6.0) H 12/27/16 19:40 Lymphocytes # 1.5 k/mm3 (1.5-3.5) 12/27/16 19:40 Monocytes # 1.3 k/mm3 (0.0-1.0) H 12/27/16 19:40 Eosinophils # 0.0 k/mm3 (0.0-0.7) 12/27/16 19:40 Absolute Basophils 0.0 k/mm3 (0.0-0.1) 12/27/16 19:40 Blood Type A Positive 12/27/16 19:40 Antibody Screen Negative 12/27/16 19:40 Blood type: A+ GBS negative. Assessment/Plan - Narrative Narrative: A: 21 yo, G1 at 39.6 weeks, in labor, dilated to 7 cm, 100% and -1. GBS negative. Plan: admit for labor. standard labor care. pitocin augmentation if needed. may have epidural if desired. gbs negative. Arthur Crews MD
[2016-12-27 21:39] LABS: Cocaine Ur Negative (NEGATIVE); Urine Barbiturate Negative (NEGATIVE); Urine Benzodiazepines Negative (NEGATIVE); Urine Opiates Negative (NEGATIVE); Urine PCP Negative (NEGATIVE); Urine THC Negative (NEGATIVE)
[2016-12-28] MEDS ORDERED: BISACODYL 10 MG SUPP.RECT RC PRN (00:48)
[2016-12-28] MEDS ORDERED: GLYCERIN/WITCH HAZEL LEAF 40 APPL BOX TP PRN (00:48)
[2016-12-28] MEDS ORDERED: OXYTOCIN/DEXTROSE 5%-WATER 30 UNITS/500 ML BAG IV ONE (00:48)
[2016-12-28] MEDS ORDERED: HYDROCORTISONE 30 APPL TUBE TP PRN (00:48)
[2016-12-28] MEDS ORDERED: diphenhydrAMINE HCL 25 MG CAPSULE PO PRN (00:48)
[2016-12-28] MEDS ORDERED: BENZOCAINE/MENTHOL 81 SPRAY CAN TP PRN (00:48)
[2016-12-28] MEDS ORDERED: ACETAMINOPHEN 325 MG TABLET PO PRN (00:48)
[2016-12-28] MEDS ORDERED: SENNOSIDES 8.6 MG TABLET PO PRN (00:48)
--- NOTE | 2016-12-28 01:01 | OR ---
Operative Report - Dictated Report Narrative: Spontaneous Vaginal Delivery Note: 21 yo, CF, G1 at 40 weeks, admitted in labor. Dilated to 7 cm. GBS negative. Received epidural. Pitocin started briefly and intermittent after epidural. SROM with clear fluid. Progressed to complete without complications. The perineum cleaned with betadine. Pushed with contractions and descent. Head delivered in OA over the perineum. No nuchal cord noted. The anterior shoulder delivered, followed by the posterior shoulder and the rest of the baby without difficulty. Baby cried at perineum. Baby placed on maternal abdomen for drying and care by the nursing. Delayed cord clamping for one minute. Cord was clamped , and cut by father of baby. Cord blood was obtained. Placenta delivered intact with 3 vessel cord. Pitocin drip started after placenta delivered. Exam of the perineum, vaginal and cervix revealed no perineum laceration. 3 cm left periurethral tear was repaired with 3-0 vicryl suture. Fundus was massaged and firm. Bleeding was minimal. Mother and baby tolerated the delivery well. EBL 300 ml. : female, 3610 grams, 7 lbs and 15. 3 oz. 8/9. Time of delivery: 00: 20. Arthur Crews MD History for Definition: * The number of deliveries resulting in a live the patient experienced prior to current hospitalization * The previous delivery of live twins or any live multiple gestation is considered one live event. *If primagravida or nulliparous is documented select zero for the number of previous live births. Live Events: 0
[2016-12-28] MEDS: DOCUSATE SODIUM 100 MG CAPSULE PO SCH ×2 (09:48→20:43)
[2016-12-28] MEDS: IBUPROFEN 800 MG TABLET PO PRN ×2 (13:05→22:00)
[2016-12-28] MEDS: HYDROcodone/ACETAMINOPHEN 1 EACH TABLET PO PRN ×2 (13:06→22:00)
[2016-12-29] MEDS: IBUPROFEN 800 MG TABLET PO PRN ×3 (07:15→21:25)
[2016-12-29] MEDS: HYDROcodone/ACETAMINOPHEN 1 EACH TABLET PO PRN ×3 (07:16→21:26)
[2016-12-29] MEDS: DOCUSATE SODIUM 100 MG CAPSULE PO SCH ×3 (07:16→21:25)
--- NOTE | 2016-12-29 12:45 | PN ---
Subjective - Date and Time Seen Date: 12/29/16 Subjective Narrative: day 1, s/p doing well. ambulating, voiding and eating well. . normal lochia. Objective - Vitals Vitals: Last Vital Signs Temp 36.8 C 12/29/16 12:00 Pulse 73 12/29/16 12:00 Resp 18 12/29/16 12:00 BP 134/94 12/29/16 12:00 Pulse Ox 99 12/29/16 12:00 - Exam Constitutional: Present: Alert, Oriented x3, Cooperative Respiratory: Present: no respiratory distress Cardiovascular/Chest: Present: normal peripheral pulses Abdomen: Present: soft, nontender, nondistended, other - fundus firm at the umbilicus. Extremity: Present: normal range of motion, no pedal edema, no calf tenderness Skin Exam: Present: normal color, warm/dry, no cyanosis Eye contact: Present: cooperative, good eye contact, normal speech Cauti Physician Documentation - Urinary Catheter Management 2-way Urethral Date of Insertion: 12/27/16 Time of Insertion: 20:15 Assessment/Plan Plan Narrative: A: day 1, s/p , stable and well. Plan: routine care. ambulation encouraged. Arthur Crews MD
[2016-12-30 08:14] VITALS: BP 142/89
[2016-12-30] MEDS: DOCUSATE SODIUM 100 MG CAPSULE PO SCH (08:28)
--- NOTE | 2016-12-30 10:08 | PN ---
Subjective - Date and Time Seen Date: 12/30/16 Subjective Narrative: day 2, s/p doing well. BP high in the mild range now and also high during labor. denies headache, blurry vision. breast feeding. normal lochia. discussed signs and symptoms of preeclampsia. precautions given. Objective - Vitals Vitals: Last Vital Signs Temp 37.1 C 12/30/16 08:10 Pulse 77 12/30/16 08:10 Resp 18 12/30/16 08:10 BP 142/89 12/30/16 08:10 Pulse Ox 98 12/30/16 08:10 - Exam Constitutional: Present: Alert, Oriented x3, Cooperative Respiratory: Present: no respiratory distress Cardiovascular/Chest: Present: normal peripheral pulses Abdomen: Present: soft, nontender, nondistended, other - fundus firm, 2 finger below umbilicus Extremity: Present: normal range of motion, no pedal edema, no calf tenderness Skin Exam: Present: normal color, warm/dry, no cyanosis Eye contact: Present: cooperative, good eye contact, normal speech Cauti Physician Documentation - Urinary Catheter Management 2-way Urethral Date of Insertion: 12/27/16 Time of Insertion: 20:15 Assessment/Plan Plan Narrative: A: day 2, s/p , stable and well with mild elevation of BP in labor and . Plan: will discharge home today. preeclampsia precautions given. patient to have blood pressure check in one week with OB in [place]. Arthur Crews MD
[2016-12-30] MEDS: HYDROcodone/ACETAMINOPHEN 1 EACH TABLET PO PRN (11:55)
== END 2016-12-30 12:00 | disposition home or self-care (01) | DRG 775 ==
LOC: OBCLINIC 18:49 → OB 19:13
PROVIDERS: ADMIT Obstetrics & Gynecology; ATTEND Obstetrics & Gynecology
PROC: 10E0XZZ Delivery of Products of Conception, External Approach (ICD-10-PCS; principal; 2016-12-28)
PROC: 4A1HXCZ Monitoring of Products of Conception, Cardiac Rate, External Approach (ICD-10-PCS; 2016-12-28)
PROC: 0HQ9XZZ Repair Perineum Skin, External Approach (ICD-10-PCS; 2016-12-28)
PROC: 00HU33Z Insertion of Infusion Device into Spinal Canal, Percutaneous Approach (ICD-10-PCS; 2016-12-28)
DX: O13.4 Gestational [pregnancy-induced] hypertension without significant proteinuria, complicating childbirth (principal); O70.0 First degree perineal laceration during delivery; Z3A.39 39 weeks gestation of pregnancy; Z37.0 Single live birth